=== PATIENT | female | born 1950 ===

== ENCOUNTER 2025-05-27 08:30 | Inpatient (IN) | payer OTHER ==
[~2025-05-27] VITALS: Ht 152.4 cm; Wt 71.7 kg
[2025-05-27] MEDS ORDERED: COZAAR100 MG PO (08:54)
[2025-05-27] MEDS ORDERED: NORVASC10 MG PO (08:54)
[2025-05-27] MEDS ORDERED: HORIZANT300 MG PO (08:54)
[2025-05-27] MEDS ORDERED: LIPITOR20 MG PO (08:54)
[2025-05-27] MEDS ORDERED: INSULIN AS100 UNIT/2 (08:55)
[2025-05-27] MEDS ORDERED: ALPHA LIPOIC A600 MG PO (08:55)
[2025-05-27 08:56] VITALS: BP 150/97
[2025-05-27 09:25] LABS: COVID-19 AG NEGATIVE (NEGATIVE)
[2025-06-04] MEDS ORDERED: METRONIDAZOLE/SODIUM CHLORIDE 500 MG/100 ML PIGGYBACK IV ONE ×2 (11:16→21:00)
[2025-06-04] MEDS ORDERED: SUGAMMADEX SODIUM 200 MG/2 ML VIAL IV ONE (14:00)
[2025-06-04] MEDS ORDERED: THROMBIN,HU/FIBRINOGEN/CALCIUM 10 ML SYRINGE TOP ONE (14:01)
[2025-06-04] MEDS ORDERED: POVIDONE-IODINE 118 ML BOTT TOP ONE (14:01)
[2025-06-04] MEDS ORDERED: VISTASEAL DUAL APPICATOR 1 EACH APPL TOP ONE (14:01)
[2025-06-04] MEDS ORDERED: RINGERS SOLUTION,LACTATED 1,000 ML IV SCH (16:45)
[2025-06-04] MEDS ORDERED: MORPHINE SULFATE 4 MG/ML CARTRIDGE IV PRN (16:45)
[2025-06-04] MEDS ORDERED: OxyCODONE HCL 5 MG TABLET (ROXICODONE) PO PRN (16:45)
[2025-06-04] MEDS ORDERED: KETOROLAC TROMETHAMINE 30 MG VIAL IV NR (16:45)
[2025-06-04] MEDS ORDERED: SIMETHICONE 125 MG CAPSULE PO SCH (17:00)
[2025-06-04] MEDS ORDERED: CEFAZOLIN SODIUM 1,000 MG VIAL IV SCH (17:00)
[2025-06-04] MEDS ORDERED: METOCLOPRAMIDE HCL 5 MG/ML VIAL IV SCH (17:00)
[2025-06-04] MEDS ORDERED: ACETAMINOPHEN 500 MG GEL..CAP PO SCH (18:00)
[2025-06-04] MEDS ORDERED: METOCLOPRAMIDE HCL 5 MG/ML VIAL ONE (18:49)
[2025-06-04] MEDS ORDERED: CEFAZOLIN SODIUM 1,000 MG VIAL ONE (18:50)
[2025-06-04] MEDS ORDERED: KETOROLAC TROMETHAMINE 30 MG VIAL ONE (18:59)
[2025-06-04] MEDS ORDERED: KETOROLAC TROMETHAMINE 30 MG VIAL IV ONE (19:00)
[2025-06-04 19:39] LABS: BUN CREA RATIO 17.0 (7.0-25.0); CREATININE SERUM 0.71 mg/dL (0.55-1.02); GFR 80.47; GLUCOSE FASTING 150.0 mg/dL (65-100); OSMOLALITY SERUM 282.0 MOSM/KG (275-295)
[2025-06-04] MEDS ORDERED: DOCUSATE SODIUM 100MG CAP PO SCH (21:00)
[2025-06-04] MEDS ORDERED: GABAPENTIN 300 MG CAPSULE PO SCH (21:00)
[2025-06-04] MEDS ORDERED: FAMOTIDINE/PF 20 MG/2 ML VIAL IV PUSH SCH (21:00)
[2025-06-04] MEDS ORDERED: CELECOXIB 200 MG CAPSULE PO SCH (21:00)
[2025-06-05 01:03] VITALS: BP 138/76; O2SAT 100
[2025-06-05 06:36] LABS: BASO % 0.2 % (0.1-1.2); EOS # 0.02 (0.04-0.54); EOS % 0.1 % (0.7-7.0); LYMPH # 0.77 (1.18-3.74); LYMPH % 3.4 % (19.3-53.1); MEAN PLATELET VOLUME 12.50 fl (9.4-12.4); MONO # 0.82 (0.24-0.82); MONO % 3.7 % (4.7-12.5); NEUT # 20.66 (1.56-6.13); NEUT % 92.1 % (34.0-71.1); RED CELL DISTRIBUTION WIDTH 15.3 % (11.6-14.4)
[2025-06-05 06:55] LABS: BUN CREA RATIO 18.0 (7.0-25.0); CREATININE SERUM 0.91 mg/dL (0.55-1.02); GFR 60.43; GLUCOSE FASTING 158.0 mg/dL (65-100); OSMOLALITY SERUM 288.0 MOSM/KG (275-295)
[2025-06-05 07:48] VITALS: BP 119/53; O2SAT 99
[2025-06-05] MEDS ORDERED: ENOXAPARIN SODIUM 40 MG/0.4 ML SYRINGE SUBCUTANEO SCH (09:00)
[2025-06-05 13:16] LABS: BASO % 0.2 % (0.1-1.2); EOS # 0.01 (0.04-0.54); EOS % 0.0 % (0.7-7.0); LYMPH # 0.96 (1.18-3.74); LYMPH % 4.6 % (19.3-53.1); MEAN PLATELET VOLUME 12.10 fl (9.4-12.4); MONO # 1.09 (0.24-0.82); MONO % 5.2 % (4.7-12.5); NEUT # 18.62 (1.56-6.13); NEUT % 89.6 % (34.0-71.1); RED CELL DISTRIBUTION WIDTH 15.7 % (11.6-14.4)
[2025-06-05] MEDS ORDERED: DEXTROSE 50 % IN WATER 0.5 G/ML DISP.SYRIN IV PRN (15:30)
[2025-06-05] MEDS ORDERED: INSULIN LISPRO 1,000 UNIT/10 ML UNITS SUBCUTANEO PRN (15:30)
[2025-06-05 16:00] VITALS: BP 122/67; O2SAT 95
[2025-06-05] MEDS ORDERED: PIPERACILLIN/TAZOBACTAM SODIUM 3.375 GM in 0.9 % SODIUM CHLORIDE 100 ML IV SCH (18:00)
[2025-06-06] MEDS ORDERED: AMLODIPINE BESYLATE 10 MG TABLET PO SCH (09:00)
[2025-06-06] MEDS ORDERED: LOSARTAN POTASSIUM 100 MG TABLET PO SCH (09:00)
== END 2025-06-05 21:23 | disposition home or self-care (01) | DRG 740 ==
LOC: OB/GYN 06-04 08:30 → O/R 06-04 10:00 → SURH 06-04 17:45 → OB/GYN 06-04 20:30 → SURH 06-05 21:23
PROVIDERS: Obstetrics & Gynecology; ADMIT Obstetrics & Gynecology Gynecologic Oncology; ATTEND Obstetrics & Gynecology Gynecologic Oncology
PROC: 0UT74ZZ Resection of Bilateral Fallopian Tubes, Percutaneous Endoscopic Approach (ICD-10-PCS; 2025-06-04)
PROC: 0UT24ZZ Resection of Bilateral Ovaries, Percutaneous Endoscopic Approach (ICD-10-PCS; 2025-06-04)
PROC: 07BC4ZZ Excision of Pelvis Lymphatic, Percutaneous Endoscopic Approach (ICD-10-PCS; 2025-06-04)
PROC: 07BD4ZZ Excision of Aortic Lymphatic, Percutaneous Endoscopic Approach (ICD-10-PCS; 2025-06-04)
PROC: 8E0W4CZ Robotic Assisted Procedure of Trunk Region, Percutaneous Endoscopic Approach (ICD-10-PCS; 2025-06-04)
PROC: 0UT94ZZ Resection of Uterus, Percutaneous Endoscopic Approach (ICD-10-PCS; principal; 2025-06-04 20:30)
DX: C54.1 Malignant neoplasm of endometrium (principal); C77.2 Secondary and unspecified malignant neoplasm of intra-abdominal lymph nodes; C77.5 Secondary and unspecified malignant neoplasm of intrapelvic lymph nodes; C79.82 Secondary malignant neoplasm of genital organs; C79.89 Secondary malignant neoplasm of other specified sites; N80.03 Adenomyosis of the uterus; D25.9 Leiomyoma of uterus, unspecified
CPT/HCPCS: 58548; S2900